=== PATIENT | female | born 1960 | race Caucasian/White ===

== ENCOUNTER → 2016-03-17 | Outpatient (CLI) | payer MEDICARE, OTHER ==
[2013-11-21 09:00] VITALS: BP 153/76
[~2016-03-17] MED LIST: AMIT10TA PO; ATOR40TA PO; DIVA125T PO; FLUO10CA13 PO; GLIM1TAB PO; HYDR12.53 PO; LISI5TAB PO; METF500T4 PO; SAXA2.5T PO; SITA25TA PO
--- NOTE | 2016-03-17 17:11 | KCIC ---
Bilateral digital screening mammograms with CAD: HISTORY Routine screening. COMPARISON Comparison is made to previous studies dated 12/18/2014 and 06/28/2013. FINDINGS Breast density category B. The skin and nipples show no abnormalities. No abnormal lymph nodes are seen in the axilla. The breast parenchyma shows scattered fibroglandular density. There are no dominant masses, suspicious calcifications or architectural distortions. IMPRESSION No evidence of malignancy. Recommend routine annual mammographic screening. This study was interpreted with the benefit of Computerized Aided Detection (CAD). Mammography is not 100% sensitive in detecting breast cancer. Therefore, a self breast exam and a clinical breast exam are very important. A negative mammogram does not negate a clinically suspicious finding and should not result in a delay in biopsying a clinically suspicious abnormality. BI-RADS category 1. Negative. This patient's information has been entered into a reminder system for the patient to be notified with the results of this examination and a target date for her next mammograms. Electronically signed by: Tessa Wong MD (Mar 17, 2016 17:09:47)
== END | disposition home or self-care (01) ==
LOC: KCIC MAMMO 10:17
PROVIDERS: ATTEND Family Medicine
DX: Z12.31 Encounter for screening mammogram for malignant neoplasm of breast (principal)
CPT/HCPCS: 77052; G0202; 77067

== ENCOUNTER → 2020-07-09 | Outpatient (CLI) | payer MEDICARE, MEDICAID ==
[2013-11-21 09:00] VITALS: BP 153/76
[~2020-07-09] MED LIST changes: -HYDR12.53 PO; +HYDR12.575 PO; +METF500T16 PO; -METF500T4 PO
--- NOTE | 2020-07-10 08:53 | KCIC ---
EXAM: PA and Lateral Views of the Chest DATE: 07/09/2020 3:23 PM INDICATION: Reason: RIB PAIN UNDER LT BREAST XS 2 WEEKS WHEN COUGHING, NON SMOKER / Spl. Instructions : / History: COMPARISON: No Prior FINDINGS: The heart is not enlarged. Mediastinal and hilar contours are normal. No focal parenchymal airspace opacity. No pleural effusion or pneumothorax. IMPRESSION: 1. No radiographic evidence for acute cardiopulmonary process. Electronically signed by: Dominic Navarro MD (07/10/2020 8:51 AM) [facility]
== END ==
LOC: KCIC 15:19
PROVIDERS: ATTEND Nurse Practitioner Gerontology
DX: R07.81 Pleurodynia (principal)
CPT/HCPCS: 71046